=== PATIENT | male | born 1970 | race Caucasian/White ===

== ENCOUNTER → 2021-09-03 00:33 | Outpatient (CLI) | payer BC, SELFPAY ==
[2021-09-03 11:53] LABS: SARS-CoV-2 RNA PCR Negative
== END ==
PROVIDERS: PCP Family Medicine; Visit Provider Internal Medicine Gastroenterology
DX: Z01.812 Encounter for preprocedural laboratory examination (principal); Z20.822 Contact with and (suspected) exposure to COVID-19
CPT/HCPCS: C9803; U0003; U0005

== ENCOUNTER 2021-09-06 00:46 | Day surgery (SDC) | payer BC, SELFPAY ==
[2021-08-23 11:03] VITALS: BMI 30.7
[2021-09-06 10:30] VITALS: BP 110/78; PULSE 100; RESP 18; TEMP 35.9; O2SAT 98; BMI 31.1
[2021-09-06] MEDS: LACTATED RINGERS 1,000 ML 150 ML IV CONT (10:57)
--- NOTE | 2021-09-06 11:01 | WPDGICN ---
Assessment and Plan Assessment and plan (1) Encounter for screening colonoscopy: Code(s): Z12.11 - Encounter for screening for malignant neoplasm of colon Status: Acute Assessment and Plan: Patient presents for screening colonoscopy. He appears to be at average risk for colon polyps. Because of episodes of lower abdominal bloating discomfort high-fiber diet is advised. Further recommendations may be given after colonoscopy. GI Consult Note Consult date/time: 09/06/21 11:01 HPI: Grayson Iglesias is a 51 year old male presents for screening colonoscopy. Patient report his weight appetite bowel movements are normal. He denies abdominal pain. He has had no bleeding. Family history noncontributory. He presents today for neoplasia screening. Patient reports that he has had several episodes of the years with lower abdominal discomfort bloating that may last for 5 days. He is uncertain whether is related to dietary intolerance or food poisoning. Bowel habits remain normal with no bleeding. He has tried conservative therapy with no adverse effects. He presents today with this concern. [facility] Family History Family History (Updated 01/12/14 @ 07:13 by DOCTOR UNKNOWN) Father Hypertension Other Diabetes mellitus Social History Social History Smoking packs per day: 0.5 Smoking cigarettes per day: 10.0 Years smoked: 20 Smoking pack-years: 10.00 Smoking status: Former smoker Tobacco type: cigarettes Second hand tobacco smoke exposure: Yes Alcohol intake: current Drinks per week: 14 Alcohol use details: 2 bers at bedtime Substance use: never Living arrangements: with family Spiritual care concerns: No Meds Home Medications and Allergies Home Medications Medication Instructions Recorded Confirmed Type No Home Medications 08/23/21 09/06/21 History Allergies Allergy/AdvReac Type Severity Reaction Status Date / Time No Known Allergies Allergy Unknown Verified 09/06/21 10:39 Vital Signs Vital Signs - 24 hr 09/06/21 10:30 Temperature 96.6 F L Pulse Rate 100 Respiratory Rate 18 Blood Pressure 110/78 Pulse Oximetry 98 Exam Narrative: Physical exam reveals patient to be alert. Vital signs stable. HEENT exam is unremarkable. Patient is anicteric. Lungs are clear to auscultation and percussion. Heart is without murmur or extra sounds. Abdomen bowel sounds are present soft nontender with no organomegaly. Digital external rectal exam is normal.
--- NOTE | 2021-09-06 11:05 | P.PNAN_ITS ---
Anes - Initial Pre Proc Eval Procedure: Operation Date: 09/06/21 11:30 Proposed Procedures p Screening Colonoscopy - Angel Kirkpatrick MD Date/Time: 09/06/21 11:05 Surgeon: Angel Kirkpatrick MD Pre Op Diagnosis: neoplasm screening Patient Data Age: 51 Gender: M Height: 1.8 m Weight: 101.1 kg Last Vital Signs Temp 96.6 F L 09/06/21 10:30 Pulse 100 09/06/21 10:30 Resp 18 09/06/21 10:30 BP 110/78 09/06/21 10:30 Pulse Ox 98 09/06/21 10:30 Allergies Allergy/AdvReac Type Severity Reaction Status Date / Time No Known Allergies Allergy Unknown Verified 09/06/21 10:39 Home Medications Medication Instructions Recorded Confirmed Type No Home Medications 08/23/21 09/06/21 History Patient hx anesthesia problems: none Family hx anesthesia problems: none Results Review: All pre-operative results and documents have been reviewed as part of the pre-operative evaluation. [facility] Family History Family History (Updated 01/12/14 @ 07:13 by DOCTOR UNKNOWN) Father Hypertension Other Diabetes mellitus Social History Social History Smoking packs per day: 0.5 Smoking cigarettes per day: 10.0 Years smoked: 20 Smoking pack-years: 10.00 Smoking status: Former smoker Tobacco type: cigarettes Second hand tobacco smoke exposure: Yes Alcohol intake: current Drinks per week: 14 Alcohol use details: 2 bers at bedtime Substance use: never Living arrangements: with family Spiritual care concerns: No Anes - Eval Final PreProcedure Day of Procedure 09/06/21 11:05 Patient weight: obese Heart: regular rate and rhythm Lungs: clear to auscultation Airway: Mallampati scale class II Neurological: alert and oriented Last oral intake: >/= 8 hours ASA classification: II Emergent: no Anesthetic plan: proceed Anesthesia type and monitoring: general GIVS and standard monitoring Results Review: All pre-operative results and documents have been reviewed as part of the pre-operative evaluation. Informed Consent: The patient's anesthetic plan and its attendant risks and benefits were discussed with the patient/family/POA. Questions were solicited and answers provided to the satisfaction of the patient/family/POA.
[2021-09-06 11:31] VITALS: BP 110/75; PULSE 85; RESP 23; O2SAT 97
[2021-09-06 11:41] VITALS: BP 105/69; PULSE 79; RESP 23; O2SAT 98
[2021-09-06 11:51] VITALS: BP 108/73; PULSE 75; RESP 20; O2SAT 99
== END 2021-09-06 11:55 | disposition home or self-care (01) ==
PROVIDERS: PCP Physician Assistant; Visit Provider Internal Medicine Gastroenterology
PROC: 0DJD8ZZ Inspection of Lower Intestinal Tract, Via Natural or Artificial Opening Endoscopic (ICD-10-PCS; CPT 45378; principal; 2021-09-06 11:30)
DX: Z12.11 Encounter for screening for malignant neoplasm of colon (principal); K64.8 Other hemorrhoids; K57.30 Diverticulosis of large intestine without perforation or abscess without bleeding; Z87.891 Personal history of nicotine dependence; E66.9 Obesity, unspecified; Z68.31 Body mass index [BMI] 31.0-31.9, adult
CPT/HCPCS: 45378; J2704; J7120